=== PATIENT | female | born 1930 ===

== ENCOUNTER 2020-06-28 10:16 | Outpatient (CLI) | payer MEDICARE | END 2020-06-28 23:59 | disposition home or self-care (01) | LOC: CVU 10:16 | PROVIDERS: ATTEND Internal Medicine Cardiovascular Disease | DX: I08.3 Combined rheumatic disorders of mitral, aortic and tricuspid valves (principal); I11.9 Hypertensive heart disease without heart failure; Z90.10 Acquired absence of unspecified breast and nipple | CPT/HCPCS: 93306 ==

== ENCOUNTER 2020-06-28 12:24 | Outpatient (CLI) | payer MEDICARE ==
[~2020-06-28 12:24] MED LIST: REGADENOSON 0.4 MG/5 ML SYRINGE ONE
== END 2020-06-28 23:59 | disposition home or self-care (01) ==
LOC: CFH 12:24
PROVIDERS: ATTEND Registered Nurse
DX: I10 Essential (primary) hypertension (principal); R06.02 Shortness of breath
CPT/HCPCS: 78452; 93017; A9502; J2785

== ENCOUNTER 2020-09-15 12:35 | Emergency (ER) | payer MEDICARE ==
[~2020-09-15] VITALS: Ht 162.6 cm; Wt 68.4 kg
--- NOTE | 2020-09-15 12:47 | NUR ---
EKG IN ROOM.
--- NOTE | 2020-09-15 13:11 | NUR ---
THIS IS A 89 YO F WHO REPORTS WAS BROUGHT IN BY BUS FROM [facility]. PT STATES THAT SHE HAD A GLF A FEW DAYS AGO AND CALLED PCP YESTERDAY TO MAKE AN APT. PCP REF PT TO ED. PT REPORTS CHRONIC "HEAD TO TOE PAIN" AND DIZZINESS. PT STATES THAT SHE DOESN'T KNOW WHY HER PCP TOLD HER TO COME IN, SHE HAS NO MEDICAL CONCERNS. PT RESTING ON GURNEY W/ CALL LIGHT IN REACH AND SIDE RAILS UPX2. RESP EVEN AND UNLABORED, NADN. AWAITING ED EVAL.
--- NOTE | 2020-09-15 13:37 | NUR ---
REPORT FROM JAIRO, ASSUME CARE OF PT AT THIS TIME.
--- NOTE | 2020-09-15 13:45 | NUR ---
ERP IN TO SEE PT.
--- NOTE | 2020-09-15 14:20 | NUR ---
PCXR COMPLETED. PT UP TO BSC WITH SBA. URINE COLLECTED/SENT TO LAB. LAB IN TO DRAW. CALL LIGHT WITHIN REACH. WARM BLANKET AND PILLOW PROVIDED.
[2020-09-15 14:46] LABS: BASOPHILS % (AUTO) 1 % (0-1); EOSINOPHILS % (AUTO) 1 % (1-7); LYMPHOCYTES % (AUTO) 31 % (22-44); MEAN CORPUSCULAR HEMOGLOBIN 28.1 pg (27.0-34.8); MEAN CORPUSCULAR HGB CONC 32.5 g/dL (32.4-35.8); MEAN PLATELET VOLUME 10.1 fL (7.4-10.4); MONOCYTES % (AUTO) 5 % (2-9); NEUTROPHILS % (AUTO) 62 % (42-75); PLATELET COUNT 205 x10^3/uL (130-400); RED BLOOD COUNT 4.77 x10^6/uL (3.82-5.3); RED CELL DISTRIBUTION WIDTH 14.5 % (9.6-15.2)
[2020-09-15 14:50] VITALS: BP 151/77
[2020-09-15 14:52] LABS: ALANINE AMINOTRANSFERASE 21 U/L (12-78); ALBUMIN 3.6 g/dL (3.4-5.0); ANION GAP 4 mmol/L (5-15); CALCIUM 9.4 mg/dL (8.5-10.1); CHLORIDE 108 mmol/L (98-107)
[2020-09-15 15:01] LABS: MICROSCOPIC AUTO
[2020-09-15 15:03] LABS: ALKALINE PHOSPHATASE 99 U/L (45-117); BILIRUBIN,TOTAL 0.5 mg/dL (0.2-1.0); T4 (THYROXINE) 6.8 mcg/dL (4.8-13.9); TOTAL PROTEIN 7.6 g/dL (6.4-8.2); TROPONIN I < 0.015 ng/mL (0.000-0.045)
--- NOTE | 2020-09-15 15:14 | NUR ---
ALL RESULTS BACK, PT FOR RECHECK
--- NOTE | 2020-09-15 15:29 | NUR ---
PT AMBULATORY, STATES FEELS GOOD TO GO HOME. PT GETTING DRESSED. ERP NOTIFIED.
--- NOTE | 2020-09-15 15:54 | NUR ---
PT AMBULATORY TO [facility] DESK. [facility] [employer] HERE TO TRANSPORT HOME.
== END 2020-09-15 15:58 | disposition home or self-care (01) ==
LOC: ED 14:26
DX: R53.1 Weakness (principal); E11.9 Type 2 diabetes mellitus without complications; I48.91 Unspecified atrial fibrillation
CPT/HCPCS: 36415; 71045; 80053; 81001; 83735; 83880; 84436; 84443; 84484; 85025; 87086; 93005; 99285